=== PATIENT | female | born 1995 | race Two or more races ===

== ENCOUNTER 2024-07-15 23:16 | Emergency (ER) | payer MEDICAID, SELFPAY ==
[2024-07-15 23:16] VITALS: BMI 36.7
[2024-07-16 00:14] VITALS: BP 152/93; PULSE 125; RESP 20; TEMP 37.7; O2SAT 96
--- NOTE | 2024-07-16 00:20 | XR_ITS ---
Examination: PA lateral chest 2 views TECHNIQUE: Upright PA lateral chest 2 views Exam date and time: July 16, 2024 0030 hours INDICATIONS: Coughing 3 weeks. FINDINGS: Left perihilar left basilar pneumonia Normal heart size Intact osseous structures IMPRESSION: Left perihilar left basilar pneumonia
--- NOTE | 2024-07-16 00:21 | EDNOTE_ITS ---
Upper Respiratory Inf. RME/HPI General Chief Complaint: Flu Like Symptoms Stated Complaint: CHILLS, COUGHING AND CONGESTION Time Seen by Provider: 07/15/24 23:40 Source: patient Arrival date/time: 07/15/24 23:16 29-year-old female presents emergency department complaining of chills, cough ing, and nasal congestion with sinus pressure. Patient reported is currently on amoxicillin antibiotic that was prescribed by her primary care provider. Mode of arrival: ambulatory Limitations: no limitations Related Data Previous Rx's ?Medication ?Instructions ?Recorded acetaminophen 500 mg capsule 500 mg PO Q6H PRN pain #3 0 caps 07/16/24 ibuprofen 600 mg tablet 600 mg PO Q8H PRN pain #20 t abs 07/16/24 oseltamivir 75 mg capsule (Tamiflu) 75 mg PO Q12H 5 da ys #10 caps 07/16/24 Allergies Allergy/AdvReac Type Severity Reaction Status Date / Time No Known Allergies Allergy Verified 07/06/22 21:51 Review of Systems Review of Systems Systems Reviewed: All systems reviewed, normal except as documented Constitutional Constitutional: Reports system reviewed and no additional complaints, except as documented, Denies body ache(s), Reports chills and Denies fever(s) Eyes Eyes: Reports system reviewed and no additional complaints, except as documented and Denies change in vision ENT Ears, Nose, Mouth, and Throat: Reports system reviewed and no additional complaints, except as documented, Denies disequilibrium, Denies dizziness, Reports nasal congestion, Reports sinus pressure, Denies sore throat and Denies vertigo Cardiovascular Cardiovascular: Reports system reviewed and no additional complaints, except as documented, Denies chest pain and Denies dyspnea Respiratory Respiratory: Reports system reviewed and no additional complaints, except as documented, Denies chest congestion, Reports cough and Denies dyspnea Gastrointestinal Gastrointestinal: Reports system reviewed and no additional complaints, except as documented, Denies abdominal pain, Denies nausea and Denies vomiting Musculoskeletal Musculoskeletal: Reports system reviewed and no additional complaints, except as documented, Denies abnormal gait and Denies arthralgias Integumentary/Breasts Skin/Breast: Reports system reviewed and no additional complaints, except as documented, Denies erythema, Denies rash and Denies wounds Neurologic Neurologic: Reports system reviewed and no additional complaints, except as documented, Denies abnormal gait, Denies disequilibrium, Denies dizziness and Denies vertigo Past Medical History Past Medical History CARDIAC: Negative Cardiac Disorders or Congestive Heart Failure RESPIRATORY: Negative Chronic Obstructive Pulmonary Disease (COPD) or Asthma GENITOURINARY: Negative Renal Disease ENDOCRINE: Negative Diabetes Mellitus Type 1 or Diabetes Mellitus Type 2 HEMATOLOGIC: Negative Sickle Cell Disease Social History SMOKING STATUS: Never smoker ED Exam General Limitations: Present no limitations General appearance: Present alert and in no apparent distress Head Head exam: Present atraumatic Eye Eye exam: Present normal appearance, PERRL and EOMI ENT ENT exam: Present normal exam, normal oropharynx and mucous membranes moist Neck Neck exam: Present normal inspection, full ROM and trachea midline Chest Chest inspection: Present normal inspection and symmetric chest wall rise Respiratory Respiratory exam: Present normal lung sounds bilaterally Cardiovascular Cardiovascular exam: Present regular rate, normal rhythm and normal heart sounds Abdominal Exam Abdominal exam: Present soft and normal bowel sounds Extremities Exam Extremities exam: Present normal inspection and full ROM Back Exam Back exam: Present normal inspection and full ROM Neurological Exam Neurological exam: Present alert, oriented X3 and CN II-XII intact Psychiatric Psychiatric exam: Present normal affect and normal mood Skin Skin exam: Present warm, dry, intact and normal color Course Quality Measures none Orders Category Date Time Status Bedside Influenza A&B Antigen Test NOW Care 07/16/24 00:20 Completed XR chest 2V Stat Exams 07/16/24 00:20 Taken Strep A Rapid Stat Lab 07/16/24 00:33 Completed Ibuprofen Tab [Motrin Tab] Med 07/16/24 00:20 Discontinued 800 mg PO X1 ONE Vital Signs Vital signs: Vital Signs Temperature 99.8 F 07/16/24 00:14 Pulse Rate 125 H 07/16/24 00:14 Respiratory Rate 20 07/16/24 00:14 Blood Pressure 152/93 H 07/16/24 00:14 Pulse Oximetry (%) 96 07/16/24 00:14 Oxygen Delivery Method Room Air 07/16/24 00:14 96% room air within normal limits Upper Respiratory Infection MDM Narrative MDM Narrative:: 29-year-old female presents emergency department complaining of chills, coughing, and nasal congestion with sinus pressure. Patient reported is currently on amoxicillin antibiotic that was prescribed by her primary care provider. No adventitious lung sounds on auscultation. Chest x-ray was unremarkable for any pneumonic infiltrates based on my interpretation. Influenza A and B positive. Patient appears nontoxic and is hemodynamically stable with moist mucous membranes. Patient not appear to be in any respiratory distress. Instructed patient to continue and finish her antibiotics as prescribed. Symptom onset within 48 hours we will treat with Tamiflu. Instructed to follow-up with primary care provider return to emergency department for any worsening symptoms or as needed. Patient data External records reviewed:: [facility] previous records Clinical information provided by:: patient Social determinants that could affect healthcare access:: none Patient has the following chronic illnesses:: None How is presenting disease/condition affected by chronic disease/condition?: no chronic disease Evaluation data The following diagnostics were reviewed and interpreted by me:: lab results and radiology exam(s) Lab and/or radiology exams considered but not ordered:: Ordered Interpretation Summary: Interpreted to me Medications / Prescriptions Medications or Prescriptions considered but not ordered:: Ordered Medication administrations:: Medication Administration History Discontinued Medications Ibuprofen (Ibuprofen Tab 400 Mg Tablet) 800 mg PO X1 ONE Stop: 07/16/24 00:21 Last Admin: 07/16/24 00:48 Dose: 800 mg Documented By: KF Given Consultations Consultation(s) initiated? (list below): No Diagnosis Upper Respiratory Differential Diagnosis: upper respiratory infection, croup, otitis media, sinusitis, viral infection, bronchitis, influenza and pharyngitis Most likely diagnosis given after review of the tests above:: Influenza Admission Indicated Admission indicated?: not indicated Admission Request Was there a request for admission?: No Disposition Plan Disposition Plan: Discharge Discharge Attestation Discharge Attestation: The patient and all family members were given an opportunity to ask questions and understood the discharge instructions. Discharge instructions specifically effects, indications for sooner follow up or return to the emergency department, and the expected course of current diagnosis. Patient condition: Stable Discharge Plan Plan Patient Disposition: HOME (Self Care) Disposition Comment: Stable Prescriptions/Referrals Prescriptions/Med Rec: New acetaminophen 500 mg capsule 500 mg PO Q6H PRN (Reason: pain) Qty: 30 0RF ibuprofen 600 mg tablet 600 mg PO Q8H PRN (Reason: pain) Qty: 20 0RF oseltamivir [Tamiflu] 75 mg capsule 75 mg PO Q12H 5 Days Qty: 10 0RF Referrals: Temporary Provider,ED [Physician] - In 1 week Problem List Clinical Impression: Influenza Patient/Caregiver Discharge Instructions Discharge Activity: activity as tolerated Education Materials: ED Influenza (Adult) Additional Instructions: Drink plenty of fluids and get plenty of rest. Take Tylenol or ibuprofen as needed for pain. Follow-up with primary care provider in 2 to 3 days. Return to emergency department for any worsening symptoms or as needed. 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 You
[2024-07-16] MEDS: IBUPROFEN TAB 400 MG TABLET 800 MG PO (00:48)
[2024-07-16 01:24] LABS: Strep A Rapid Negative (Negative)
== END 2024-07-16 01:45 | disposition home or self-care (01) ==
PROVIDERS: Emergency Provider Emergency Medicine; PCP Family Medicine
DX: J11.1 Influenza due to unidentified influenza virus with other respiratory manifestations (principal)
CPT/HCPCS: 71046; 87400; 87651; 99283; A9270